=== PATIENT | male | born 1950 | race Caucasian/White ===

== ENCOUNTER 2016-12-04 08:31 | Emergency (ER) | payer OTHER ==
[2016-12-04 08:39] VITALS: BP 140/84; BMI 25.7
--- NOTE | 2016-12-04 08:49 | DR.GENAD ---
HPI - PCP Primary Care Physician: KODI CLARK - Complaint/Symptoms Chief Complaint:: PT C/O NOT BEING ABLE TO CHARGE HIS PHONE THIS AM AND HAVING COORDINATION PROBLEMS THAT HAVE BEEN GOING ON FOR A FEW DAYS.. PT EXWIFE IS WITH HIM AND PT HAS A HX OF HYPOGLEMIA,,, AND HE ACTED THIS WAY THEN,,, Self Treatment fo Chief Complaint: PT DENIES ANY PAIN,,, - Source History Provided: Patient - Mode of Arrival Mode of Arrival: Ambulatory - Timing Onset of Chief Complaint: 12/01/16 PMH - PMH Past Medical History: Yes Past Medical History Comment: HYPOGLYCEMIA Past Surgical History: No Surgical History: Other - Family History History of Family Medical Conditions: No - Social History Does patient currently use any type of tobacco product: No Have you used tobacco products in the last 12 months: No Type of Tobacco Use: None Does any household member use tobacco: No Alcohol Use: None Do you use any recreational Drugs:: No Lives With: Family Lives Where: Home - infectious screening In the last 2 months have you had wt loss of >10#?: NO Have you had fever, night sweats or hemotysis?: No Have you traveled outside the country in the last 6 months?: No Isolation: Standard ROS - Review of Systems Eyes: No Symptoms Reported ENTM: No Symptoms Reported Respiratoy: No Symptoms Reported Cardiovascular: No Symptoms Reported Gastrointestinal/Abdominal: No Symptoms Reported Genitourinary: No Symptoms Reported Neurological: No Symptoms Reported Musculoskeletal: No Symptoms Reported Integumentary: No Symptoms Reported Hematologic/Lymphatic: No Symptoms Reported Endocrine: No Symptoms Reported Psychiatric: No Symptoms Reported All Other Systems: Reviewed and Negative PE - Vital Signs Vitals: Temperature 98.3 F Pulse Rate 82 Respiratory Rate 20 Blood Pressure 140/84 O2 Sat by Pulse Oximetry 99 - General Limitations: No Limitations General Appearance: In No Apparent Distress - Head Head Exam: Normal Inspection, Atraumatic - Eyes Eye exam: Normal Appearance, PERRL, EOMI - ENT ENT Exam: Normal Exam External Ear Exam: Normal External Inspection TM/Canal Exam: Bilateral Normal Nose Exam: Normal Nose Exam Mouth Exam: Normal Inspection Throat Exam: Normal Inspection - Neck Neck Exam: Normal Inspection - Chest Chest Inspection: Normal Inspection, Symmetric Chest Wall Rise - Respiratory Respiratory Exam: Normal Lung Sounds Bilat Respiratory Exam: Bilateral Clear to Auscultation - Cardiovascular Cardiovascular Exam: Regular Rate, Normal Rhythm - Abdominal Exam Abdominal Exam: Normal Inspection, Normal Bowel Sounds Abdominal Tenderness: negative: RUQ, RLQ, LUQ, LLQ, Epigastrium, Suprapubic, Diffuse, Mild, Moderate, Severe, Other - Extremities Extremities Exam: Normal Inspection - Back Back Exam: Normal Inspection, Full ROM - Neurologic Neurological Exam: Alert, Oriented X3, CN II-XII Intact - Psychiatric Psychiatric Exam: Normal Affect - Skin Skin Exam: Warm, Dry, Intact Course - Reevaluation 1st: Unchanged ROR - Labs Reviewed Laboratory Results Reviewed?: Yes (UA:Leuk +,Nitr +) Result Diagrams: 12/04/16 09:20 12/04/16 09:20 Laboratory: WBC 8.3 X10^3/uL (3.6-10.0) 12/04/16 09:20 RBC 5.64 X10^6/uL (4.7-6.0) 12/04/16 09:20 Hgb 16.6 g/dL (13.5-18.0) 12/04/16 09:20 Hct 48.7 % (42.0-54.0) 12/04/16 09:20 MCV 86.2 fL (80.0-100.0) 12/04/16 09:20 MCH 29.4 pg (27.0-34.0) 12/04/16 09:20 MCHC 34.1 g/dL (33.0-35.0) 12/04/16 09:20 RDW 15.0 % (11.6-16.5) 12/04/16 09:20 Plt Count 155 X10^3/uL (150.0-450.0) 12/04/16 09:20 MPV 8.3 fL (7.4-11.0) 12/04/16 09:20 Neut % 80.3 % (42.0-75.0) H 12/04/16 09:20 Lymph % 9.8 % (21.0-51.0) L 12/04/16 09:20 [place] % 8.2 % (0.0-13.0) 12/04/16 09:20 Eos % 0.6 % (0.9-2.9) L 12/04/16 09:20 Baso % 1.1 % (0.2-1.0) H 12/04/16 09:20 Neut # 6.7 x10^3/uL (2.2-4.8) H 12/04/16 09:20 Lymph # 0.8 X10^3/uL (1.3-2.9) L 12/04/16 09:20 [place] # 0.7 x10^3/uL (0.3-0.8) 12/04/16 09:20 Eos # 0.0 x10^3/uL (0.0-0.2) 12/04/16 09:20 Baso # 0.1 X10^3/uL (0.0-0.1) 12/04/16 09:20 Absolute Nucleated RBC 0.0 /100WBC 12/04/16 09:20 Sodium 138 mmol/L (136-145) 12/04/16 09:20 Corrected Sodium TNP 12/04/16 09:20 Potassium 4.0 mmol/L (3.5-5.1) 12/04/16 09:20 Chloride 101 mmol/L (98-107) 12/04/16 09:20 Carbon Dioxide 27.5 mmol/L (21-32) 12/04/16 09:20 BUN 24 mg/dL (7-18) H 12/04/16 09:20 Creatinine 1.73 mg/dL (0.70-1.30) H 12/04/16 09:20 Est GFR (MDRD) Af Amer 51 (>60) L 12/04/16 09:20 Est GFR (MDRD) Non-Af 42 (>60) L 12/04/16 09:20 Glucose 85 mg/dL (65-99) 12/04/16 09:20 POC Glucose (mg/dL) 88 mg/dL (65-99) 12/04/16 08:52 Calcium 8.6 mg/dL (8.5-10.1) 12/04/16 09:20 Corrected Calcium 9.2 mg/dL (8.5-10.1) 12/04/16 09:20 Total Bilirubin 1.30 mg/dL (0.2-1.0) H 12/04/16 09:20 AST 26 Units/L (15-37) 12/04/16 09:20 ALT 19 Units/L (12-78) 12/04/16 09:20 Alkaline Phosphatase 56 Units/L (46-116) 12/04/16 09:20 C-Reactive Protein 151.20 mg/L (0-3.0) H 12/04/16 09:20 Total Protein 7.6 g/dL (6.4-8.2) 12/04/16 09:20 Albumin 3.3 g/dL (3.4-5.0) L 12/04/16 09:20 Globulin 4.3 g/dL (2.5-4.5) 12/04/16 09:20 Albumin/Globulin Ratio 0.8 Ratio (1.1-2.1) L 12/04/16 09:20 Specimen Type Clean catch urine 12/04/16 08:48 Urine Color Dark yellow (YELLOW) 12/04/16 08:48 Urine Appearance Hazy (CLEAR) 12/04/16 08:48 Urine pH 5.0 (5.0 - 8.0) 12/04/16 08:48 Ur Specific [place] 1.025 (1.000-1.030) 12/04/16 08:48 Urine Protein 2+ (NEGATIVE) 12/04/16 08:48 Urine Glucose (UA) Negative (NEGATIVE) 12/04/16 08:48 Urine Ketones 2+ (NEGATIVE) 12/04/16 08:48 Urine Occult Blood 5+ (NEGATIVE) 12/04/16 08:48 Urine Nitrite Positive (NEGATIVE) 12/04/16 08:48 Urine Bilirubin 1+ (NEGATIVE) 12/04/16 08:48 Urine Urobilinogen 2+ (NORMAL) 12/04/16 08:48 Ur Leukocyte Esterase 1+ (NEGATIVE) 12/04/16 08:48 Urine RBC 5-7 /HPF (NEGATIVE) 12/04/16 08:48 Urine WBC 2-4 /HPF (NEGATIVE) 12/04/16 08:48 Ur Squamous Epith Cells Few /HPF (NEGATIVE) 12/04/16 08:48 Amorphous Sediment 2+ /HPF (NEGATIVE) 12/04/16 08:48 Urine Bacteria Trace /HPF (NEGATIVE) 12/04/16 08:48 Granular Casts Many /LPF (NEGATIVE) 12/04/16 08:48 Urine Mucus Many /HPF (NEGATIVE) 12/04/16 08:48 Ur Culture Indicated? Yes/culture set up 10/11/17 08:48 - Diagnosis Discharge Problem: UTI (urinary tract infection) Qualifiers: Urinary tract infection type: site unspecified Hematuria presence: without hematuria Qualified Code(s): N39.0 - Urinary tract infection, site not specified - Discharge Plan Condition: Stable - Follow ups/Referrals Follow ups/Referrals: NFD,None [Primary Care Provider] - 3 days - Instructions
[2016-12-04 09:06] LABS: BILIRUBIN,URINE 1+ (NEGATIVE); BLOOD/HEMOGLOBIN,URINE 5+ (NEGATIVE); GLUCOSE, URINE NEGATIVE (NEGATIVE); KETONES,URINE 2+ (NEGATIVE); LEUKOCYTE ESTERASE ,URINE 1+ (NEGATIVE); NITRITES,URINE POSITIVE (NEGATIVE); PROTEIN,URINE 2+ (NEGATIVE); UROBILINOGEN,URINE 2+ (NORMAL)
[2016-12-04 09:17] LABS: AMORPHOUS SEDIMENT,UR 2+ /HPF (NEGATIVE); APPEARANCE,URINE HAZY (CLEAR); BACTERIA,URINE TRACE /HPF (NEGATIVE); COLOR,URINE DARK YELLOW (YELLOW); GRANULAR CASTS,URINE MANY /LPF (NEGATIVE); SQUAMOUS EPITHELIAL CELL,UR FEW /HPF (NEGATIVE)
[2016-12-04 09:18] LABS: MUCUS,URINE MANY /HPF (NEGATIVE)
[2016-12-04 09:31] LABS: BASOPHILS # (AUTO) 0.1 X10^3/uL (0.0-0.1); BASOPHILS % (AUTO) 1.1 % (0.2-1.0); EOSINOPHILS % (AUTO) 0.6 % (0.9-2.9); HEMATOCRIT 48.7 % (42.0-54.0); HEMOGLOBIN 16.6 g/dL (13.5-18.0); LYMPHOCYTES # (AUTO) 0.8 X10^3/uL (1.3-2.9); LYMPHOCYTES % (AUTO) 9.8 % (21.0-51.0); MEAN CORPUSCULAR HEMOGLOBIN 29.4 pg (27.0-34.0); MEAN CORPUSCULAR HGB CONC 34.1 g/dL (33.0-35.0); MEAN CORPUSCULAR VOLUME 86.2 fL (80.0-100.0); MEAN PLATELET VOLUME 8.3 fL (7.4-11.0); MONOCYTES # (AUTO) 0.7 x10^3/uL (0.3-0.8); MONOCYTES % (AUTO) 8.2 % (0.0-13.0); NEUTROPHILS # (AUTO) 6.7 x10^3/uL (2.2-4.8); NEUTROPHILS % (AUTO) 80.3 % (42.0-75.0); PLATELET COUNT 155 X10^3/uL (150.0-450.0); RED BLOOD COUNT 5.64 X10^6/uL (4.7-6.0); WHITE BLOOD COUNT 8.3 X10^3/uL (3.6-10.0)
[2016-12-04 09:38] LABS: ALANINE AMINOTRANSFERASE 19 Units/L (12-78); ALBUMIN 3.3 g/dL (3.4-5.0); ALKALINE PHOSPHATASE 56 Units/L (46-116); ASPARTATE AMINO TRANSFERASE 26 Units/L (15-37); BLOOD UREA NITROGEN 24 mg/dL (7-18); CALCIUM 8.6 mg/dL (8.5-10.1); CARBON DIOXIDE 27.5 mmol/L (21-32); CHLORIDE 101 mmol/L (98-107); COR CA(FOR HYPOALB) 9.2 mg/dL (8.5-10.1); CREATININE 1.73 mg/dL (0.70-1.30); SODIUM 138 mmol/L (136-145); TOTAL PROTEIN 7.6 g/dL (6.4-8.2); eGFR BLACK RACES 51 (>60); eGFR NON BLACK RACES 42 (>60)
[2016-12-04] MEDS ORDERED: ROCEPHIN VIAL 1 GM ONE (11:28)
[2016-12-04] MEDS ORDERED: XYLOCAINE 1 % (PLAIN) ONE (11:29)
[2016-12-04] MEDS ORDERED: ROCEPHIN VIAL 1 GM 1 GM in NS 50 ML IV + SPIKE MINIBAG* 50 ML IV SCH (11:30)
[2016-12-04] MEDS ORDERED: ROCEPHIN VIAL 1 GM IM ONE (11:40)
== END 2016-12-04 11:54 | disposition home or self-care (01) ==
LOC: ER 08:45
DX: N39.0 Urinary tract infection, site not specified (principal)
CPT/HCPCS: 36415; 80053; 81001; 85025; 86140; 87086; 96372; 99282; 99283; J0696; J2001